=== PATIENT | female | born 1995 | race Caucasian/White ===

== ENCOUNTER 2017-12-08 22:34 | Emergency (ER) | payer OTHER ==
[~2017-12-08] VITALS: Ht 160 cm; Wt 60.3 kg
[2017-12-08 22:43] VITALS: Ht 160 cm; Wt 60.3 kg
[2017-12-09 03:30] VITALS: BP 112/68
== END 2017-12-09 03:30 | disposition home or self-care (01) ==
LOC: ED 22:34
DX: M25.561 Pain in right knee (principal)